=== PATIENT | female | born 1975 | race Caucasian/White ===

== ENCOUNTER 2018-10-06 19:33 | Emergency (ER) | payer BC ==
[2018-10-06 19:49] VITALS: BP 154/72
--- NOTE | 2018-10-06 20:08 | EDM.PDOC ---
ED HPI GENERAL MEDICAL PROBLEM - General Chief Complaint: Lower Extremity Injury/Pain Stated Complaint: right calf pain Time Seen by Provider: 10/06/18 19:50 Source of Information: Reports: Patient History Limitations: Reports: No Limitations - History of Present Illness INITIAL COMMENTS - FREE TEXT/NARRATIVE: Patient presents to the ED with complaints of right calf pain. 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 No complications reported during stay or during procedure. Noticed calf pain earlier today. She has no complaints of swelling, redness, or heat that accompanies the pain. No history of hematologic disorders in her personal medical history or within her family's. No prior DVT's. Denies any medical history, denies current medication use. States recovery has been going well and she is back at work. Denies any fever, chills, nausea, vomiting, blood in urine or stool, no chest pain or shortness of breath. Surgical sites healing well with no redness or drainage reported. Surgical history includes cholecystectomy, hysterectomy x 1, tonsillectomy, rotator cuff repair. Allergies to PCN and sulfa. Onset: Today, Sudden Duration: Intermittent Location: Reports: Lower Extremity, Right Quality: Reports: Ache Severity: Mild Worsens with: Reports: Movement Associated Symptoms: Reports: No Other Symptoms Right Leg Pain Score (Numeric/FACES): 2 - Related Data Allergies Allergy/AdvReac Type Severity Reaction Status Date / Time Penicillins Allergy Rash Verified 10/06/18 19:39 Sulfa (Sulfonamide Allergy Rash Verified 10/06/18 19:39 Antibiotics) Home Meds: Home Meds . [No Known Home Meds] 07/24/15 [History] Past Medical History - Past Surgical History HEENT Surgical History: Reports: Adenoidectomy, Tonsillectomy GI Surgical History: Reports: Bariatric Procedure, Cholecystectomy Female Surgical History: Reports: Section, Hysterectomy Musculoskeletal Surgical History: Reports: Shoulder Surgery Social & Family History - Tobacco Use Smoking Status *Q: Never Smoker Review of Systems - Review of Systems Review Of Systems: See Below Constitutional: Reports: No Symptoms Eyes: Reports: No Symptoms Ears: Reports: No Symptoms Nose: Reports: No Symptoms Mouth/Throat: Reports: No Symptoms Respiratory: Reports: No Symptoms Cardiovascular: Reports: No Symptoms GI/Abdominal: Reports: No Symptoms Genitourinary: Reports: No Symptoms Musculoskeletal: Reports: Leg Pain Skin: Reports: No Symptoms Neurological: Reports: No Symptoms Psychiatric: Reports: No Symptoms ED EXAM, GENERAL - Physical Exam Exam: See Below Exam Limited By: No Limitations General Appearance: Alert, WD/WN, No Apparent Distress Respiratory/Chest: No Respiratory Distress, Lungs Clear, Normal Breath Sounds, No Accessory Muscle Use, Chest Non-Tender Cardiovascular: Normal Peripheral Pulses, Regular Rate, Rhythm, No Edema, No Gallop, No JVD, No Murmur, No Rub Peripheral Pulses: 2+: Posterior Tibial (L), Posterior Tibial (R), Dorsalis Pedis (L), Dorsalis Pedis (R) GI/Abdominal: Normal Bowel Sounds, Soft, Non-Tender, No Organomegaly, No Distention, No Abnormal Bruit, No Mass Back Exam: Normal Inspection, Full Range of Motion, NT Extremities: Normal Inspection, Normal Range of Motion, Non-Tender, Normal Capillary Refill, No Pedal Edema Neurological: Alert, Oriented, CN II-XII Intact, Normal Cognition, Normal Gait, Normal Reflexes, No Motor/Sensory Deficits Psychiatric: Normal Affect, Normal Mood Skin Exam: Warm, Dry, Intact, Normal Color, No Rash Lymphatic: No Adenopathy Course - Vital Signs Last Recorded V/S: Last Vital Signs Temp 36.4 C 10/06/18 19:39 Pulse 73 10/06/18 19:39 Resp 16 10/06/18 19:39 BP 154/72 H 10/06/18 19:39 Pulse Ox 96 10/06/18 19:39 - Orders/Labs/Meds Labs: Laboratory Tests 10/06/18 10/06/18 10/06/18 Range/Units 20:15 20:15 20:15 WBC 7.8 (4.0-10.0) x10^3/uL RBC 4.83 (4.00-5.50) x10^6/uL Hgb 14.3 (12.0-16.0) g/dL Hct 41.8 (33.0-47.0) % MCV 86.5 (78.0-93.0) fL MCH 29.6 (26.0-32.0) pg MCHC 34.2 (32.0-36.0) g/dL RDW Coeff of Rod 13.0 (10.0-15.0) % Plt Count 346 (130-400) x10^3/uL Neut % (Auto) 58.4 (50.0-80.0) % Lymph % (Auto) 31.2 (25.0-50.0) % [place] % (Auto) 8.3 (2.0-11.0) % Eos % (Auto) 1.7 (0.0-4.0) % Baso % (Auto) 0.4 (0.2-1.2) % PT 11.5 H (9.6-11.4) SEC INR 1.1 L (2.0-3.5) D-Dimer, Quantitative 1.87 H (<=0.58) mg/LFEU Sodium 142 (136-145) mmol/L Potassium 4.0 (3.5-5.1) mmol/L Chloride 102 (98-107) mmol/L Carbon Dioxide 26 (21-32) mmol/L Anion Gap 18.0 (10-20) mmol/L BUN 13 (7-18) mg/dL Creatinine 0.7 (0.55-1.02) mg/dL Est Cr Clr Drug Dosing TNP Estimated GFR (MDRD) > 60 Glucose 87 (74-106) mg/dL Calcium 9.5 (8.5-10.1) mg/dL Corrected Calcium 9.66 (8.5-10.1) mg/dL Total Bilirubin 0.6 (0.2-1.0) mg/dL AST 25 (15-37) U/L ALT 49 (14-59) U/L Alkaline Phosphatase 103 (46-116) U/L Total Protein 7.6 (6.4-8.2) g/dL Albumin 3.8 (3.4-5.0) g/dL Globulin 3.8 Albumin/Globulin Ratio 1.00 - Re-Assessments/Exams Free Text/Narrative Re-Assessment/Exam: 10/06/18 20:06 Explained to patient that we will draw labs to check her D-Dimer level. Relayed that due to recent surgery, this may still be elevated and if so she would have to either choose to be on anticoagulation until this could be ruled out with ultrasound on Tuesday, or if she would rather, she could be evaluated in [place] with ultrasound to be definitive on appropriate treatment. With her recent surgery, she is surely at risk for DVT. Was on lovenox while inpatient for her surgery. 10/06/18 20:49 Reviewed results with her. D-Dimer was of course elevated due to surgery 10 days ago. She would like to go on to [place] for definitive ultrasound before prophylactically starting on any anticoagulation. Departure - Departure Time of Disposition: 20:52 Disposition: Home, Self-Care 01 Condition: Good Clinical Impression: Elevated d-dimer, Right calf pain - Discharge Information *PRESCRIPTION DRUG MONITORING PROGRAM REVIEWED*: Not Applicable *COPY OF PRESCRIPTION DRUG MONITORING REPORT IN PATIENT ORAL: Not Applicable Referrals: Alisha Smith MD [Primary Care Provider] - Forms: ED Department Discharge ED Communication - ED Communication Date/Time Date: 10/06/18 Time Called: 20:53 - Discussed Case With (1) Discussed Case With (1): Other (I did call and review patient with [facility] to inform them of her decision to seek additional care in their ER. Lanny with [facility] stated she would let the ER know that she is on her way. EMTALA not filled out due to treatment here and patient choosing to go elsewhere for additional diagnostics.) - Problem List & Annotations (1) Elevated d-dimer SNOMED Code(s): 661228450 Code(s): R79.89 - OTHER SPECIFIED ABNORMAL FINDINGS OF BLOOD CHEMISTRY Status: Acute Priority: Medium Current Visit: Yes (2) Right calf pain SNOMED Code(s): 577091893 Code(s): M79.661 - PAIN IN RIGHT LOWER LEG Status: Acute Priority: Low Current Visit: Yes - Assessment/Plan Plan: Patient is planning to go to [facility] ER for additional testing with ultrasound to rule out VTE.
[2018-10-06 20:41] LABS: CHLORIDE,CL 102 mmol/L (98-107); SODIUM,NA 142 mmol/L (136-145)
== END 2018-10-06 20:58 | disposition home or self-care (01) ==
LOC: VM.ED 19:33
DX: M79.661 Pain in right lower leg (principal); R79.1 Abnormal coagulation profile; Z88.0 Allergy status to penicillin; Z88.2 Allergy status to sulfonamides
CPT/HCPCS: 36415; 80053; 85025; 85379; 85610; 99283

== ENCOUNTER 2020-02-02 14:16 | Emergency (ER) | payer BC, OTHER ==
[2020-02-02] MEDS ORDERED: Lactated Ringers 1,000 ML IV SCH (15:00)
[2020-02-02 15:02] VITALS: BP 118/79; PULSE 86
--- NOTE | 2020-02-02 15:11 | EDM.PDOC ---
ED HPI GENERAL MEDICAL PROBLEM - General Chief Complaint: Gastrointestinal Problem Stated Complaint: FOOD POSIONING/FEELS WORSE Time Seen by Provider: 02/02/20 14:45 Source of Information: Reports: Patient History Limitations: Reports: No Limitations - History of Present Illness INITIAL COMMENTS - FREE TEXT/NARRATIVE: Patient presents to ER with complaints of persisting diarrhea and abdominal cramping. She states she had initially thought she had food poisoning as her daughter also originally had diarrhea for the first 2 days as well. She states her daughter has gotten better but her symptoms have persisted. Continues to have 6+ watery stools per day. No fevers. Mild nausea at times. She had dry heaves today prior to arrival here. Has not noted any blood in her stools. Was seen by Brook Smith on , given IV fluids yesterday. Has been taking immodium but that has not helped. She "feels worse today". Hands are tingling at times. Feels lightheaded. Onset: Gradual Duration: Day(s): Location: Reports: Abdomen Quality: Reports: Ache Severity: Mild Improves with: Reports: Rest Worsens with: Reports: Eating Associated Symptoms: Reports: Fever/Chills, Loss of Appetite, Nausea/Vomiting. Denies: Confusion, Cough, Shortness of Breath (did have covid testing on Tuesday that was negative), Weakness Abdomen Pain Score (Numeric/FACES): 8 - Related Data Allergies Allergy/AdvReac Type Severity Reaction Status Date / Time Penicillins Allergy Rash Verified 02/02/20 15:06 Sulfa (Sulfonamide Allergy Rash Verified 02/02/20 15:06 Antibiotics) Home Meds: Home Meds . [No Known Home Meds] 07/24/15 [History] Past Medical History - Past Surgical History HEENT Surgical History: Reports: Adenoidectomy, Tonsillectomy GI Surgical History: Reports: Bariatric Procedure, Cholecystectomy Female Surgical History: Reports: Section, Hysterectomy Musculoskeletal Surgical History: Reports: Shoulder Surgery Social & Family History - Tobacco Use Smoking Status *Q: Unknown Ever Smoked ED ROS GENERAL - Review of Systems Review Of Systems: See Below Constitutional: Reports: Chills, Malaise, Weakness, Fatigue, Decreased Appetite. Denies: Fever HEENT: Reports: No Symptoms Respiratory: Denies: Shortness of Breath, Cough Cardiovascular: Denies: Chest Pain, Edema, Lightheadedness Endocrine: Reports: Fatigue GI/Abdominal: Reports: Abdominal Pain, Diarrhea, Nausea. Denies: Constipation, Vomiting : Reports: No Symptoms Musculoskeletal: Reports: No Symptoms Skin: Reports: No Symptoms ED EXAM, GI/ABD - Physical Exam Exam: See Below Exam Limited By: No Limitations General Appearance: Alert, WD/WN, No Apparent Distress Ears: Normal External Exam, Normal TMs Nose: Normal Inspection, Normal Mucosa, No Blood Throat/Mouth: Normal Inspection, Normal Oropharynx Head: Normocephalic Neck: Normal Inspection, Supple, Non-Tender Respiratory/Chest: No Respiratory Distress, Lungs Clear, Normal Breath Sounds Cardiovascular: Regular Rate, Rhythm GI/Abdominal Exam: Normal Bowel Sounds, Soft, Tender (diffusely throughout) Extremities: Normal Inspection, No Pedal Edema Neurological: Alert, Oriented Skin Exam: Warm, Dry Course - Vital Signs Last Recorded V/S: Last Vital Signs Temp 98.1 F 02/02/20 14:20 Pulse 86 02/02/20 14:20 Resp 16 02/02/20 14:20 BP 118/79 02/02/20 14:20 Pulse Ox 95 02/02/20 14:20 - Orders/Labs/Meds Orders: Active Orders 24 hr Category Date Time Status CLOSTRIDIUM DIFFICILE TOX RFLX [MREF] Stat Lab 02/02/20 15:40 Received MISC TEST Routine Lab 02/02/20 15:40 Received STOOL CULTURE [MREF] Stat Lab 02/02/20 15:40 Received Lactated Ringers [Ringers, Lactated] 1,000 ml Med 02/02/20 15:00 Active IV ASDIRECTED Potassium Chloride [Klor-Con 10] Med 02/02/20 18:00 Ordered 10 meq PO BIDMEALS Isolation [COMM] Stat Oth 02/02/20 14:48 Ordered Medication Orders Lactated Ringer's (Ringers, Lactated) 1,000 mls @ 500 mls/hr IV ASDIRECTED ALEXANDER Last Admin: 02/02/20 14:58 Dose: 500 mls/hr Documented by: EDUARDO Potassium Chloride (Klor-Con 10) 10 meq PO BIDMEALS [facility] Labs: Laboratory Tests 02/02/20 02/02/20 02/02/20 Range/Units 14:56 14:56 15:40 WBC 5.0 (4.0-10.0) x10^3/uL RBC 5.03 (4.00-5.50) x10^6/uL Hgb 15.0 (12.0-16.0) g/dL Hct 41.9 (33.0-47.0) % MCV 83.3 D (78.0-93.0) fL MCH 29.8 (26.0-32.0) pg MCHC 35.8 (32.0-36.0) g/dL RDW Coeff of Rod 12.6 (10.0-15.0) % Plt Count 252 D (130-400) x10^3/uL Neut % (Auto) 54.1 (50.0-80.0) % Lymph % (Auto) 28.8 (25.0-50.0) % [place] % (Auto) 13.7 H (2.0-11.0) % Eos % (Auto) 3.0 (0.0-4.0) % Baso % (Auto) 0.4 (0.2-1.2) % Sodium 138 (136-145) mmol/L Potassium 3.1 L (3.5-5.1) mmol/L Chloride 103 (98-107) mmol/L Carbon Dioxide 24 (21-32) mmol/L Anion Gap 14.1 (10-20) mmol/L BUN 7 (7-18) mg/dL Creatinine 0.7 (0.55-1.02) mg/dL Est Cr Clr Drug Dosing TNP Estimated GFR (MDRD) > 60 Glucose 89 (74-106) mg/dL Calcium 8.4 L (8.5-10.1) mg/dL Corrected Calcium 8.96 (8.5-10.1) mg/dL Total Bilirubin 0.8 (0.2-1.0) mg/dL AST 41 H (15-37) U/L ALT 39 (14-59) U/L Alkaline Phosphatase 92 (46-116) U/L C-Reactive Protein 1.1 H (<=0.9) mg/dL Total Protein 6.3 L (6.4-8.2) g/dL Albumin 3.3 L (3.4-5.0) g/dL Globulin 3.0 Albumin/Globulin Ratio 1.10 Urine Color Dark yellow H (YELLOW) Urine Appearance Clear (CLEAR) Urine pH 6.0 (5.0-8.0) Ur Specific [place] 1.025 Urine Protein Negative (NEGATIVE) mg/dL Urine Glucose (UA) Negative (NEGATIVE) mg/dL Urine Ketones 80 H (NEGATIVE) mg/dL Urine Occult Blood Negative (NEGATIVE) Urine Nitrite Negative (NEGATIVE) Urine Bilirubin Small H (NEGATIVE) Urine Urobilinogen 0.2 (0.2) EU/dL Ur Leukocyte Esterase Negative (NEGATIVE) U Hyaline Cast (Auto) Few Urine RBC 0-5 (NOT SEEN) /HPF Urine WBC 0-5 (NOT SEEN) /HPF Ur Squamous Epith Cells Moderate H (NEGATIVE) /HPF Urine Bacteria Not seen (NEGATIVE) /HPF Urine Mucus Many H (NEGATIVE) /LPF Meds: Medications Generic Name Dose Route Start Last Admin Trade Name Freq PRN Reason Stop Dose Admin Lactated Ringer's 1,000 mls @ 500 mls/hr 02/02/20 15:00 02/02/20 14:58 Ringers, Lactated IV 500 mls/hr ASDIRECTED [facility] Administration Potassium Chloride 10 meq 02/02/20 18:00 Klor-Con 10 PO BIDMEALS [facility] - Re-Assessments/Exams Free Text/Narrative Re-Assessment/Exam: 02/02/20 15:58 Labs are all fairly stable. Does have low potassium at 3.1. Will start oral replacement and plan for recheck on Tuesday with primary care provider. Stool studies were collected. Will need follow up for these results. Encouraged to drink fluids, bland diet. Immodium as needed. Patient verbalizes understanding. Departure - Departure Time of Disposition: 15:59 Disposition: Home, Self-Care 01 Condition: Fair Clinical Impression: Diarrhea - Discharge Information *PRESCRIPTION DRUG MONITORING PROGRAM REVIEWED*: No *COPY OF PRESCRIPTION DRUG MONITORING REPORT IN PATIENT ORAL: No Instructions: Dehydration, Adult, [id number], Diarrhea, Adult Referrals: Alisha Smith MD [Primary Care Provider] - Forms: ED Department Discharge Additional Instructions: 1. Push fluids 2. [place] diet 3. Potassium 10 meq twice a day. 4. Follow up with primary care provider on Tuesday, will need recheck of potassium level 5. Immodium as needed 6. Rest 7. You will be notified of any concerns with stool studies. Sepsis Event Note (ED) - Focused Exam Vital Signs: Vital Signs Temp Pulse Resp BP Pulse Ox 02/02/20 14:20 98.1 F 86 16 118/79 95 - My Orders Last 24 Hours: My Active Orders 02/02/20 14:48 Isolation [COMM] Stat 02/02/20 15:00 Lactated Ringers [Ringers, Lactated] 1,000 ml IV ASDIRECTED 02/02/20 15:40 CLOSTRIDIUM DIFFICILE TOX RFLX [MREF] Stat MISC TEST Routine STOOL CULTURE [MREF] Stat 02/02/20 18:00 Potassium Chloride [Klor-Con 10] 10 meq PO BIDMEALS - Assessment/Plan Last 24 Hours: My Active Orders 02/02/20 14:48 Isolation [COMM] Stat 02/02/20 15:00 Lactated Ringers [Ringers, Lactated] 1,000 ml IV ASDIRECTED 02/02/20 15:40 CLOSTRIDIUM DIFFICILE TOX RFLX [MREF] Stat MISC TEST Routine STOOL CULTURE [MREF] Stat 02/02/20 18:00 Potassium Chloride [Klor-Con 10] 10 meq PO BIDMEALS
[2020-02-02 15:26] LABS: CHLORIDE,CL 103 mmol/L (98-107); SODIUM,NA 138 mmol/L (136-145)
[2020-02-02 15:27] LABS: ANION GAP 14.1 mmol/L (10-20)
--- NOTE | 2020-02-02 15:39 | CR ---
[id number] RAD/RAD Abd Flat and Upright 2V EXAM: RAD Abd Flat and Upright 2V INDICATION: Abdominal pain. COMPARISON: February 03, 2015. DISCUSSION: The colon is mildly distended containing scattered air-fluid levels. This could be seen with a colonic ileus or diarrhea illness. A distal colonic obstruction is a less likely possibility. Cholecystectomy clips right upper quadrant. Bowel suture lines in the left upper quadrant could be seen in the context of previous gastric bypass or gastric resection. An ovoid radiopacity overlying the right pelvis likely represents a pill. No pathologic calcifications or osseous lesions are identified. IMPRESSION: 1. Findings suggestive of a diarrheal illness or a mild colonic ileus. David Pringle MD 02/02/20 0617 Thank you for allowing us to participate in the care of your patient.
[2020-02-02] MEDS ORDERED: Potassium Chloride 10 MEQ Tab.ER PO SCH (18:00)
== END 2020-02-02 16:22 | disposition home or self-care (01) ==
LOC: VM.ED 14:16
DX: R19.7 Diarrhea, unspecified (principal); R11.2 Nausea with vomiting, unspecified; R68.83 Chills (without fever); R63.0 Anorexia; R10.9 Unspecified abdominal pain; Z88.2 Allergy status to sulfonamides; Z88.0 Allergy status to penicillin; Z90.49 Acquired absence of other specified parts of digestive tract; Z90.710 Acquired absence of both cervix and uterus; Z98.890 Other specified postprocedural states
CPT/HCPCS: 74019; 80053; 81001; 85025; 86140; 87045; 87046; 87493; 96360; 99283; 99284; A9270; J7120